=== PATIENT | male | born 1955 | race Caucasian/White ===

== ENCOUNTER → 2022-05-13 | Outpatient (CLI) | payer BC ==
--- NOTE | 2022-05-13 11:35 | Diagnostic Imaging Report ---
PROCEDURE: US Scrotum. TECHNIQUE: Multiple real-time grayscale images were obtained over the scrotum in various projections bilaterally. INDICATION: Pain and swelling right scrotum. FINDINGS: The right epididymis is prominent and hypervascularized consistent with epididymitis. Right testicular parenchyma sonographically appeared . However relative to the left the right testicle shows a relatively mild elevated Color Doppler blood flow and a component of right-sided orchitis is suspected. There are small bilateral hydroceles present. Right hydrocele is septated. The left simple and unilocular. No abscess. Tiny subcentimeter benign incidental epididymal head cysts present bilaterally. IMPRESSION: Findings are most consistent with right-sided epididymitis and likely mild right orchitis. There are bilateral hydroceles simple on the left but on the right showing internal septations but no kelsey pyocele. Dictated by: Dictated on workstation # [id number]
== END ==
LOC: RAD 07:59
PROVIDERS: ATTEND Family Medicine
DX: N45.3 Epididymo-orchitis (principal); N43.3 Hydrocele, unspecified
CPT/HCPCS: 76870